=== PATIENT | male | born 1950 | race African-American/Black ===

== ENCOUNTER 2019-02-07 10:28 | Outpatient (CLI) | payer MEDICARE ==
[2019-02-07 11:09] LABS: ALANINE AMINOTRANSFERASE 26 U/L (12-78); ALBUMIN 3.9 G/DL (3.4-5.0); ALBUMIN/GLOBULIN RATIO 1.2 (1.0-2.7); ALKALINE PHOSPHATASE 60 U/L (46-116); ANION GAP 5 mmol/L (5-15); ASPARTATE AMINO TRANSFERASE 24 U/L (15-37); BILIRUBIN,TOTAL 0.9 MG/DL (0.2-1.0); BLOOD UREA NITROGEN 14 mg/dL (7-18); CALCIUM 9.3 MG/DL (8.5-10.1); CARBON DIOXIDE 30 MMOL/L (21-32); CHLORIDE 108 MMOL/L (98-107); CREATININE 1.3 MG/DL (0.55-1.30); SODIUM 143 MMOL/L (136-145)
== END 2019-02-07 12:28 | disposition home or self-care (01) ==
LOC: LAB 10:28
DX: E87.5 Hyperkalemia (principal)
CPT/HCPCS: 36415; 80053